=== PATIENT | female | born 1930 ===

== ENCOUNTER → 2017-09-25 | Emergency (ER) | payer OTHER ==
[~2017-09-25] VITALS: Ht 149.9 cm; Wt 43.1 kg
[~2017-09-25] MED LIST: ANTIVERT25 M1 PO; FUROSEMIDE20 MG; GEMFIBROZIL600 MG; NIFEDIAC CC60 MG; PREVACID30 MG PO; PRILOSEC10 M1; SYNTHROID75 MCG; TOPROL XL25 M1
== END | disposition home or self-care (01) ==
LOC: ER 14:36
DX: I10 Essential (primary) hypertension (principal)

== ENCOUNTER 2019-05-13 08:42 | Emergency (ER) | payer OTHER ==
[~2019-05-13] VITALS: Ht 152.4 cm; Wt 45.4 kg
== END 2019-05-13 14:11 | disposition home or self-care (01) ==
LOC: ER 08:42 → EDBD 08:47 → ER 08:47
DX: E03.8 Other specified hypothyroidism (principal); R53.1 Weakness